=== PATIENT | male | born 1955 | race African-American/Black ===

== ENCOUNTER 2017-11-06 11:38 | Emergency (ER) | payer OTHER ==
[~2017-11-06] VITALS: Ht 177.8 cm; Wt 105.5 kg
[2017-11-06] MEDS ORDERED: ATOR40TA28 PO (11:51)
[2017-11-06] MEDS ORDERED: VITAD1000 PO (11:51)
[2017-11-06] MEDS ORDERED: BENZ1TAB10 PO (11:51)
[2017-11-06 13:36] VITALS: BP 127/79
== END 2017-11-06 13:43 | disposition home or self-care (01) ==
LOC: EMS 11:38
DX: J20.9 Acute bronchitis, unspecified (principal); R11.10 Vomiting, unspecified; E78.00 Pure hypercholesterolemia, unspecified; F17.210 Nicotine dependence, cigarettes, uncomplicated; Z79.899 Other long term (current) drug therapy
CPT/HCPCS: 71046; 99284